=== PATIENT | male | born 1960 | race Caucasian/White ===

== ENCOUNTER → 2017-05-03 | Outpatient (CLI) | payer BC ==
[~2017-05-03] MED LIST: LOSA100T36 PO; SIMV40TA2 PO; SPIR1CAP INH
--- NOTE | 2017-05-03 15:30 | REP ---
Clinical: Lung screening. Nicotine dependence. Comparison: None Technique: Axial low-dose noncontrast images from the thoracic inlet to the upper abdomen using lung screening technique. Findings: The lung soto are well-aerated. Mild early emphysematous changes cannot be excluded along with mild scattered basilar interstitial changes and bronchiectasis. 3 mm noncalcified subpleural nodule in the right lower lobe (image 48) is identified. No further consolidation, significant nodule or mass lesion is appreciated. No pleural effusion/reaction or pneumothorax. Tracheobronchial tree is patent. Mediastinum demonstrates mild atherosclerotic changes of the coronary arteries without cardiomegaly. Impression: Lung-RADS category II. 3 mm noncalcified subpleural nodule in the right lower lobe. Recommendations include 12-month low-dose chest CT reevaluation. Signed by Ki Glover MD 05/03/2017 03:21 P
== END ==
LOC: M RAD 14:42
PROVIDERS: ATTEND Internal Medicine
DX: F17.200 Nicotine dependence, unspecified, uncomplicated (principal)

== ENCOUNTER → 2018-11-08 | Outpatient (CLI) | payer BC ==
[~2018-11-08] MED LIST changes: -LOSA100T36 PO; +LOSA100T50 PO
--- NOTE | 2018-11-09 11:22 | REP ---
Low-dose lung screening CT of the chest: Comparison is 05/03/2017. The study is performed without IV contrast. The images are presented at lung windowing only. There is a 3 mm lung nodule posteriorly in the left upper lobe on image 22, unchanged. There is a 5 ml pleural-based lung nodule in the right lower lobe on image 48, unchanged. There is a 3 mm pleural-based lung nodule in the right lower lobe on image 50, unchanged. There are no new lung nodules or masses. There are no infiltrates or effusions. Impression: Category 2 low-dose lung screening CT. Probability of malignancy is less than 1%. Annual follow-up low-dose lung screening CT is recommended for surveillance. Electronically Signed by Sorin Llanes MD 11/09/2018 11:14 A
== END ==
LOC: M RAD 09:38
PROVIDERS: ATTEND Internal Medicine
DX: F17.210 Nicotine dependence, cigarettes, uncomplicated (principal)

== ENCOUNTER → 2019-11-27 | Outpatient (CLI) | payer BC ==
[~2019-11-27] MED LIST changes: -SIMV40TA2 PO; +SIMV40TA20 PO
--- NOTE | 2019-11-27 10:56 | REP ---
CT CHEST WITHOUT CONTRAST: Low-dose screening exam. HISTORY: Nicotine dependence. Comparison low-dose screening chest CT studies are dated November 08, 2018 and May 03, 2017. FINDINGS: There are multiple subcentimeter noncalcified pulmonary nodules bilaterally. All of these are unchanged from the May 03, 2017 prior study. No new nodule is appreciated. No mass lesion is seen. IMPRESSION: Stable lung RADS category 2 benign findings. Repeat screening exam suggested 1 year. Electronically Signed by Jonathan Delvalle MD 11/27/2019 12:26 P
== END ==
LOC: M RAD 10:22
PROVIDERS: ATTEND Internal Medicine
DX: R91.8 Other nonspecific abnormal finding of lung field (principal); F17.218 Nicotine dependence, cigarettes, with other nicotine-induced disorders

== ENCOUNTER → 2020-10-31 | Outpatient (CLI) | payer BC ==
--- NOTE | 2020-10-31 14:39 | REP ---
INDICATION: UNS ART JOY ART OF JOSSY LEGS, OCCLUSION AND STENOSIS COMPARISON: None. TECHNIQUE: Real-time ultrasound evaluation and duplex Doppler interrogation of the extracranial carotid vasculature is performed. FINDINGS: There is mild plaquing and narrowing in both carotid bulbs extending into the internal and external carotid arteries. Luminal narrowing is less than 50%. There is no evidence of hemodynamically significant stenosis of either internal carotid artery. Normal flow velocities are seen. The vertebral arteries demonstrate normal direction of flow. RIGHT LEFT Peak systolic velocity ICA 52.0 cm/s 59.8 cm/s End diastolic velocity ICA 20.9 cm/s 26.9 cm/s Peak systolic velocity CCA 81.3 cm/s 86.9cm/s Peak systolic velocity ECA 114.6 cm/s 115.5 cm/s ICA/CCA ratio 0.60 0.69 IMPRESSION: Bilateral luminal narrowing of the internal carotid arteries less than 50%. No evidence of hemodynamically significant stenosis. <Electronically signed by Sorin Townsend > 10/31/20 [id number]
--- NOTE | 2020-10-31 14:49 | REP ---
INDICATION: UNS ART JOY ART OF JOSSY LEGS, OCCLUSION AND STENOSIS COMPARISON: None. TECHNIQUE: Real time townsend scale and Duplex Doppler evaluation of the bilateral lower extremity arterial vasculature using linear high frequency transducer. FINDINGS: Townsend scale and duplex doppler images demonstrate mild to moderate scattered plaquing and narrowing bilaterally, most significantly in the arterial structures of the thigh. There is significant plaque at the aortic bifurcation, more so on the right than on the left. There is somewhat increased flow velocity in the right common iliac artery which could indicate some degree of stenosis. There is occlusion of the distal right superficial femoral artery with reconstitution of the popliteal artery above the level of the knee. There are slow flow velocities in the more distal arterial structures of the right lower extremity. There is also occlusion of the distal left superficial femoral artery with reconstitution of the popliteal artery above the level of the knee joint and slow flow in the more distal arterial structures of the left lower extremity. The DOUGLAS bilaterally is 0.76. Triphasic waveforms are seen in the right common and external iliac arteries as well as mid right SFA with monophasic waveforms in the remaining arterial structures of the right lower extremity. On the left monophasic waveforms are seen in the common iliac and external iliac arteries. There are triphasic waveforms in the left common femoral through mid SFA, biphasic waveform in the distal SFA and monophasic waveforms from the left popliteal artery distally. Peak systolic velocities (cm/sec) Distal abdominal aorta: 90 Common iliac artery: Right 193; left 67 External iliac artery: Right 103; left 103 Common femoral artery: Right 89; Left 96 Profunda femoris: Right 84; Left 86 SFA (proximal): Right 64; Left 55 SFA (mid): Right 38; Left 43 SFA (distal): Right occluded; Left occluded Popliteal artery: Right 24; Left 9 FELISHA (prox.): Right 28; Left 25 Tibioperoneal trunk: Right 27; Left 23 PURCHASING ADMINISTRATOR (prox.): Right 31; Left 30 PURCHASING ADMINISTRATOR (distal): Right 37; Left 42 FELISHA (distal): Right 39; Left 41 IMPRESSION: Mild to moderate scattered plaquing and narrowing, most significantly in the arteries of both thighs. There is bilateral occlusion of the superficial femoral arteries with reconstitution of the popliteal arteries above the knee bilaterally. <Electronically signed by Sorin Townsend > 10/31/20 [id number]
== END ==
LOC: M RAD 12:33
PROVIDERS: ATTEND Physician Assistant
DX: I65.23 Occlusion and stenosis of bilateral carotid arteries (principal); I70.203 Unspecified atherosclerosis of native arteries of extremities, bilateral legs; F17.210 Nicotine dependence, cigarettes, uncomplicated

== ENCOUNTER → 2020-12-02 | Outpatient (CLI) | payer BC ==
--- NOTE | 2020-12-02 17:04 | REP ---
INDICATION: LUNG SCREENING. COMPARISON: Low-dose lung screening chest CT dated 11/27/2019. TECHNIQUE: The study is performed without IV contrast. Images are presented at lung windowing only. FINDINGS: There are multiple small lung nodule similar to the prior study. There are no new lung nodules. There are no enlarging lung nodules. One of the small lung nodules on the right is no longer present, compatible with transient atelectasis. There are no infiltrates or pleural effusions. IMPRESSION: Category 2 low-dose lung screening CT of the chest. Probability of malignancy is less than 1%. Depending on risk factors continued annual follow-up low-dose lung screening chest CT is recommended. <Electronically signed by Sorin Llanes > 12/02/20 [id number]
== END ==
LOC: M RAD 14:02
PROVIDERS: ATTEND Internal Medicine
DX: F17.218 Nicotine dependence, cigarettes, with other nicotine-induced disorders (principal)

== ENCOUNTER → 2021-01-02 | Outpatient (CLI) | payer BC ==
[~2021-01-02] MED LIST changes: +ASPI81CH33 PO; +CLOP75TA2 PO; +ISOVUE-300 61% 50ML VIAL As Ordered ONE; +LIDOCAINE 1% MDV 20ML VIAL As Ordered ONE; +MIDAZOLAM INJ 2MG/2ML VIAL (J2250 PER 1MG) As Ordered ONE; +fentaNYL 100 MCG/2 ML INJECTION (J3010) As Ordered ONE
[2021-01-02 07:07] LABS: HEMATOCRIT 42.7 % (42.0-52.0); HEMOGLOBIN 14.6 g/dl (13.5-17.5); MEAN CORPUSCULAR HEMOGLOBIN 33.2 pg (27.0-33.0); MEAN CORPUSCULAR HGB CONC 34.2 g/dl (32.0-36.5); PLATELET COUNT, AUTOMATED 258 10^3/uL (150-450)
[2021-01-02 07:40] LABS: BLOOD UREA NITROGEN 15 MG/DL (7-18); CALCIUM LEVEL 9.4 MG/DL (8.8-10.2); CARBON DIOXIDE LEVEL 28 MEQ/L (21-32); CHLORIDE LEVEL 110 MEQ/L (98-107); CREATININE FOR GFR 0.83 MG/DL (0.70-1.30); GLOMERULAR FILTRATION RATE > 60.0 (>49); GLUCOSE, FASTING 81 MG/DL (70-100); POTASSIUM SERUM 3.9 MEQ/L (3.5-5.1); SODIUM LEVEL 142 MEQ/L (136-145)
--- NOTE | 2021-01-02 09:24 | ROOPDOC ---
[facility] Report Of Operation Report of Operation DATE OF PROCEDURE: 01/02/21 PREPROCEDURE DIAGNOSES: Atherosclerosis in the kaw artery supplies so limiting claudication right lower extremity POSTPROCEDURE DIAGNOSES: Same PROCEDURE: 1. Ultrasound-guided access left common femoral artery 2. Aortoiliofemoral arteriogram 3. Selection right superficial femoral artery and right lower extremity runoff 4. Cross chronic total occlusion right superficial femoral artery and selection popliteal artery with tibial runoff 5. Angioplasty right superficial femoral artery with 6 x 200 [place] balloon 6. Stent right superficial femoral artery with 6 x 100 and 7 x 100 Innova stents with post-dilation 6 x 200 [place] balloon 7. Completion arteriograms right lower extremity 8. Angioplasty bilateral common iliac artery and left external iliac artery with 8 x 40 Stock[place] balloon 9. Completion iliac arteriograms 10. Mynx closure left common femoral artery SURGEON: Aylin Camacho MD ANESTHESIA: Local anesthesia 8 mL lidocaine. Moderate intravenous conscious sedation was supervised by Dr. Camacho. The patient was independently monitored by registered nurse assigned to the Department of radiology using automated blood pressure, EKG, and pulse oximetry. The detailed sedation record is permanently stored in the hospital information system. The following is a brief sedation record: Start time 08:12, stop time 08:59, Versed 1.5 mg IV, fentanyl 75 g IV, heparin 3000 units IV. INDICATION FOR PROCEDURE: This is a very pleasant 60-year-old gentleman with a long-standing history of tobacco abuse who has atherosclerosis the kaw arteries progressed to lifestyle limiting claudication in the right lower extremity. Risks benefits alternatives to an arteriogram with potential intervention were explained to the patient needs agreeable to proceed. Extensive counseling has been performed repeatedly for smoking cessation to improve outcomes. Informed consent was obtained. INTERPRETATION: 1. There is mild tortuosity at the distal aorta with calcification ectasia but no stenosis in the distal aorta. The right common iliac artery has heavy plaque and I estimate 40% stenosis and we note poststenotic dilatation, with widely patent inflow into the hypogastric artery and external iliac artery and common femoral artery. The more distal vessels are calcified but patent with no significant flow limiting stenoses. The left common iliac artery has heavy plaque proximally with proximally 40% stenosis, a focal area of tight stenosis near the bifurcation of the hypogastric in the left external iliac artery is about 60% stenosis, and an mild stenosis in the proximal external iliac artery of about 30%. The external iliac artery and common femoral artery are calcified but no flow-limiting stenoses are noted. 2. The right common femoral artery has good outflow into the profunda which provides large collateral down to the below-knee popliteal artery. The SFA is widely patent proximally was some ectasia and plaque starting in the proximal mid vessel, resulting in an occlusion in the mid superficial femoral artery and reconstitution at Mark's canal through collaterals from the more proximal SFA and the profunda. The popliteal artery is ectatic proximally but widely patent in the mid distal portions with 3 vessel runoff to the foot through the anterior tibial artery, peroneal artery, and posterior tibial artery. No significant tibial disease is noted in the right lower extremity. 3. We confirmed we're in the true lumen with a quick contrast injection at the popliteal artery after crossing the occlusion in the right SFA. After angioplasty along the length of the occlusion and the stenotic areas in the superficial femoral artery, there is improvement in flow but still some areas of dissection at the areas heaviest plaque and flow limitation due to bulky remaining plaque. There is also some irregularity more proximally in the proximal mid vessel. After stenting the area and post dilating, the vessel is widely patent with no flow-limiting stenosis. No distal embolization is noted on completion arteriogram. 4. We chose not to stent the proximal disease in the iliac vessels today to allow us to go up and over to treat the left lower extremity in the future. Because the proximal nature of the stenoses and plaque, the area may require kissing stents which would preclude us from going up and over. Therefore angioplasty along was performed today. After angioplasty of the right common iliac artery, there is more rapid flow and better contrast opacification of the right lower extremity. No embolization, dissections or extravasation are noted. After angioplasty of the left common iliac artery and external iliac artery, there is definitely an improvement in flow through the left iliac system, with better contrast opacification. No embolization, extravasation or dissection is noted. REPORT OF OPERATION: The patient was brought to the angiographic suite in stable condition. His bilateral groins were prepped and draped in sterile fashion. A timeout was performed. Sedation was administered without complication. Local anesthesia was administered to the skin and subcutaneous tissue over the left common femoral artery. A microneedle was used to access the artery under ultrasound guidance. A wire was placed and the needle was removed and a 4 Kuwaiti sheath was placed and flushed with saline. A Glidewire and flushing catheter were advanced into the distal aorta and aortoiliofemoral arteriograms were performed, please interpretation above. We then went up and over the bifurcation selected the right superficial femoral artery and right lower extremity runoff was performed. Please interpretation above. We then exchange the sheath for 6 x 45 cm destination sheath and flushes sheath with saline. A [facility] catheter was advanced over the wire and we utilized this to cross the occlusion in the right superficial femoral artery. This was challenging, as there was a large collateral at the occlusion in the proximal mid SFA, and the wire and catheter continued to try to select the large collateral rather than crossing the occlusion, but with additional efforts we were eventually able to cross the occlusion. We confirmed we're in the true lumen with a quick contrast injection at the popliteal artery that showed good tibial flow. We then advanced a 6 x 200 balloon from Mark's canal to more proximal and 2 angioplasties for three- minute inflations were performed. Please interpretation above. We deployed a 6 x 100 Innova stent at the distal SFA and extended proximally with a 7 x 100 Innova stent with a 1 cm overlap, and then this was postdilated with a 6 x 200 Stock[place] balloon. Following this there is widely patent inflow through the SFA and excellent flow distal. We then retracted the sheath to the bifurcation and advanced an 8 x 40 Stock[place] balloon across the proximal right common iliac artery and angioplasty this area. Following this there was improved flow and no dissection embolization or extravasation were noted. We then retracted the tip of the sheath into the distal external iliac artery on the left. We then angioplastied the left common iliac artery and external iliac artery with the 8 x 40 Stock[place] balloon for sequential inflations, and following this there was a marked improvement in flow with no extravasation embolization or dissection noted. I still believe the patient will eventually need stents in the proximal common iliac arteries extended to the proximal external iliac artery on the left, but we like to avoid doing that at this time to allow us to go from the right groin up and over to treat the left leg in the future. Hopefully this angioplasty will improve inflow somewhat to alleviate some of the patient's symptoms. We then exchange the sheath over wire for short 6 [place]i sheath and deployed a Mynx closure device. Part of the Mynx closure device came out with the balloon, but the majority was left in situ. Good hemostasis was noted after pressure was held and the patient was taken to recovery in stable condition. He tolerated the sedation in the procedure well. ESTIMATED BLOOD LOSS: Approximately 5 mL. COMPLICATIONS: None. PLAN: It is okay for the patient to resume his home diet and medications. We will prescribe Plavix and he will need to take this, uninterrupted if possible, for 60 days after bare-metal stent placement. We will see him in a week to check his groin access site and his perfusion. Patient hasn't been extensively counseled that all interventions are likely to feel if he continues to smoke, and ongoing tobacco abuse will put him at high risk for limb loss in the future. He is currently not actively trying to quit smoking despite our efforts. We appreciate the opportunity to participate in the care of this patient. AYLIN CAMACHO MD January 02, 2021 09:24
[2021-01-02 13:19] VITALS: BP 148/90
== END ==
LOC: M IRPRO 06:30
PROVIDERS: ATTEND Surgery Vascular Surgery
DX: I70.211 Atherosclerosis of native arteries of extremities with intermittent claudication, right leg (principal); I70.92 Chronic total occlusion of artery of the extremities; I65.23 Occlusion and stenosis of bilateral carotid arteries; I10 Essential (primary) hypertension; E78.00 Pure hypercholesterolemia, unspecified; F17.210 Nicotine dependence, cigarettes, uncomplicated; G47.33 Obstructive sleep apnea (adult) (pediatric); J44.9 Chronic obstructive pulmonary disease, unspecified; Q25.49 Other congenital malformations of aorta; Z79.82 Long term (current) use of aspirin
CPT/HCPCS: 37220; 37222; 37226; 75710; 80048; 85027; 99152; 99153; C1725; C1760; C1769; C1876; C1887; C1894; J1644; J2250; J3010; Q9967

== ENCOUNTER → 2022-01-10 | Outpatient (CLI) | payer BC ==
[~2022-01-10] MED LIST changes: -ISOVUE-300 61% 50ML VIAL As Ordered ONE; -LIDOCAINE 1% MDV 20ML VIAL As Ordered ONE; +LOSA100T45 PO; -LOSA100T50 PO; -MIDAZOLAM INJ 2MG/2ML VIAL (J2250 PER 1MG) As Ordered ONE; -fentaNYL 100 MCG/2 ML INJECTION (J3010) As Ordered ONE
== END ==
LOC: M RAD 10:09
PROVIDERS: ATTEND Internal Medicine
DX: Z12.2 Encounter for screening for malignant neoplasm of respiratory organs (principal); F17.210 Nicotine dependence, cigarettes, uncomplicated; R91.8 Other nonspecific abnormal finding of lung field

== ENCOUNTER → 2022-01-10 | Outpatient (CLI) | payer BC | LOC: M RAD 10:07 | PROVIDERS: ATTEND Surgery Vascular Surgery | DX: I70.213 Atherosclerosis of native arteries of extremities with intermittent claudication, bilateral legs (principal) ==

== ENCOUNTER → 2022-07-04 | Outpatient (CLI) | payer BC | LOC: M LABSMTC 09:32 | PROVIDERS: ATTEND Anesthesiology | DX: Z01.812 Encounter for preprocedural laboratory examination (principal); Z11.52 Encounter for screening for COVID-19 ==

== ENCOUNTER 2022-07-09 11:27 | Day surgery (SDC) | payer BC ==
[~2022-07-09] VITALS: Ht 172.7 cm; Wt 82.6 kg
[~2022-07-09 11:27] MED LIST changes: +NS 1,000 ML IV ONE
[2022-07-09 13:20] VITALS: BP 140/69
== END 2022-07-09 13:32 | disposition home or self-care (01) ==
LOC: M OPP 11:27
PROVIDERS: ATTEND Internal Medicine Gastroenterology
DX: Z12.11 Encounter for screening for malignant neoplasm of colon (principal); Z86.010 Personal history of colon polyps; Z83.71 Family history of colonic polyps; D12.6 Benign neoplasm of colon, unspecified; K64.0 First degree hemorrhoids; K57.30 Diverticulosis of large intestine without perforation or abscess without bleeding; D17.5 Benign lipomatous neoplasm of intra-abdominal organs; K55.20 Angiodysplasia of colon without hemorrhage; Z79.02 Long term (current) use of antithrombotics/antiplatelets; Z79.51 Long term (current) use of inhaled steroids; Z79.82 Long term (current) use of aspirin; Z79.899 Other long term (current) drug therapy; Z99.89 Dependence on other enabling machines and devices; G47.30 Sleep apnea, unspecified; I10 Essential (primary) hypertension; E78.5 Hyperlipidemia, unspecified; J44.9 Chronic obstructive pulmonary disease, unspecified; F17.200 Nicotine dependence, unspecified, uncomplicated; I70.211 Atherosclerosis of native arteries of extremities with intermittent claudication, right leg

== ENCOUNTER → 2022-11-15 | Outpatient (CLI) | payer BC ==
[~2022-11-15] MED LIST changes: -NS 1,000 ML IV ONE
== END ==
LOC: M RAD 12:36
PROVIDERS: ATTEND Physician Assistant
DX: I73.9 Peripheral vascular disease, unspecified (principal)

== ENCOUNTER → 2023-01-17 | Outpatient (CLI) | payer BC ==
[~2023-01-17] MED LIST changes: -LOSA100T45 PO; +LOSA100T46 PO
== END ==
LOC: M RAD 16:50
PROVIDERS: ATTEND Internal Medicine
DX: Z12.2 Encounter for screening for malignant neoplasm of respiratory organs (principal); F17.218 Nicotine dependence, cigarettes, with other nicotine-induced disorders; R91.1 Solitary pulmonary nodule

== ENCOUNTER → 2023-09-11 | Outpatient (CLI) | payer MEDICARE | LOC: M RAD 10:58 | PROVIDERS: ATTEND Physician Assistant | DX: I70.203 Unspecified atherosclerosis of native arteries of extremities, bilateral legs (principal); Z95.820 Peripheral vascular angioplasty status with implants and grafts ==

== ENCOUNTER → 2024-02-17 | Outpatient (CLI) | payer MEDICARE | LOC: M RAD 10:30 | PROVIDERS: ATTEND Internal Medicine | DX: Z87.891 Personal history of nicotine dependence (principal) ==

== ENCOUNTER → 2024-09-14 | Outpatient (CLI) | payer MEDICARE | LOC: M RAD 13:50 | PROVIDERS: ATTEND Physician Assistant | DX: I73.9 Peripheral vascular disease, unspecified (principal); Z95.820 Peripheral vascular angioplasty status with implants and grafts ==

== ENCOUNTER → 2025-08-04 | Outpatient (CLI) | payer MEDICARE | LOC: M RAD 11:38 | PROVIDERS: ATTEND Internal Medicine | DX: I65.23 Occlusion and stenosis of bilateral carotid arteries (principal) ==